=== PATIENT | male | born 1990 | race Two or more races ===

== ENCOUNTER 2017-07-29 19:12 | Emergency (ER) | payer MEDICAID ==
[~2017-07-29] VITALS: Ht 177.8 cm; Wt 103.0 kg
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
--- NOTE | 2017-07-29 19:36 | NUR ---
XRAY AT THE BEDSIDE.
[2017-07-29 19:56] LABS: BASOPHILS # (AUTO) 0.2 /CMM (0.0-0.2); BASOPHILS % (AUTO) 2.6 % (0.0-2.0); EOSINOPHILS # (AUTO) 0.1 /CMM (0.0-0.7); EOSINOPHILS % (AUTO) 1.5 % (0.0-6.0); HEMATOCRIT 48 % (39-51); LYMPHOCYTES # (AUTO) 2.4 /CMM (0.8-4.8); LYMPHOCYTES % (AUTO) 27.3 % (20.0-44.0); MEAN CORPUSCULAR HEMOGLOBIN 28 PG (26.0-33.0); MEAN CORPUSCULAR HGB CONC 34 g/dl (31.0-36.0); MEAN CORPUSCULAR VOLUME 84 fL (80-96); MONOCYTES # (AUTO) 0.6 /CMM (0.1-1.30); MONOCYTES % (AUTO) 7.3 % (2.0-12.0); NEUTROPHILS # (AUTO) 5.4 /CMM (1.8-8.9); NEUTROPHILS % (AUTO) 61.3 % (43.0-81.0); PLATELET COUNT (AUTO) 319 /CMM (150-450); RED BLOOD CELL COUNT(AUTO) 5.67 MIL/uL (4.5-6.0); WHITE BLOOD COUNT (AUTO) 8.7 K/uL (4.3-11.0)
--- NOTE | 2017-07-29 19:58 | NUR ---
PT GONE TO CT.
--- NOTE | 2017-07-29 20:15 | NUR ---
PT RETURNED FROM CT.
--- NOTE | 2017-07-29 20:20 | NUR ---
PT KNOWS HE IS IN THE HOSPITAL.
--- NOTE | 2017-07-29 20:25 | NUR ---
PT IS REFUSING URINE SAMPLE AT THIS TIME.
--- NOTE | 2017-07-29 20:26 | NUR ---
PT APPEARS TO BE MORE ALERT. PT IN THE PROCESS OF GIVING A URINE SAMPLE.
[2017-07-29 20:40] LABS: INR 0.88 (0.87-1.13); PROTHROMBIN TIME 9.1 SECS (9.5-12.7)
[2017-07-29 20:44] LABS: CALCIUM, SERUM 9.4 mg/dL (8.5-10.1); CARBON DIOXIDE 30 mmol/L (21-32); CHLORIDE 101 mmol/L (98-107); GLUCOSE 99 mg/dL (74-106); POTASSIUM 4.1 mmol/L (3.5-5.1); SODIUM SERUM 136 mmol/L (136-145); UREA NITROGEN, BLOOD 12 mg/dL (7-18)
[2017-07-29 20:49] LABS: SERUM AMMONIA 6 umol/L (11-32)
--- NOTE | 2017-07-29 20:53 | NUR ---
PT IS SITTING UP IN BED EATING CHEETOS. URINE SAMPLE OBTAINED. PT WANTS TO GO SMOKE. PT STATED THAT HE DIDN'T ANSWER OUR INITIAL QUESTIONS ABOUT WHO HE WAS AND WHERE HE WAS BECAUSE HE WASN'T FEELING WELL.
[2017-07-29 21:07] LABS: ALANINE AMINOTRANSFERASE 66 U/L (12-78); ALCOHOL, BLOOD < 3 mg/dL (0-0); ALKALINE PHOSPHATASE 89 U/L (46-116); ASPARTATE AMINOTRANSFERASE 39 U/L (15-37); BILIRUBIN,DIRECT 0.1 mg/dL (0.0-0.2); BILIRUBIN,TOTAL 0.5 mg/dL (0.2-1.0); THYROID STIMULATING HORMONE 1.602 uIU/mL (0.358-3.74); TOTAL PROTEIN, SERUM 7.7 g/dL (6.4-8.2)
[2017-07-29 21:09] LABS: ACETAMINOPHEN 0 ug/ml (10-30)
--- NOTE | 2017-07-29 21:18 | NUR ---
PT AMBULATED TO THE BATHROOM WITH A STEADY GAIT.
[2017-07-29 21:21] LABS: APPEARANCE,URINE Clear (CLEAR); BILIRUBIN,URINE Negative (NEGATIVE); BLOOD, URINE Negative Ery/uL (NEGATIVE); COLOR,URINE Yellow (YELLOW); KETONES,URINE Negative (NEGATIVE); LEUKOCYTE ESTERASE ,URINE Negative (NEGATIVE); NITRITE, URINE Negative (NEGATIVE); PH,URINE 8.5 (5.0-8.0); PROTEIN,URINE Negative (NEGATIVE); UGLUCOSE Negative (NEGATIVE); UROBILINOGEN,URINE 0.2 EU/dL (0.2)
--- NOTE | 2017-07-29 21:46 | NUR ---
IV removed. Catheter intact and site benign. Pressure and 4x4 applied to site. No bleeding noted.
--- NOTE | 2017-07-29 21:48 | NUR ---
PT AMBULATED TO THE BATHROOM WITH A STEADY GAIT.
[2017-07-29 21:49] VITALS: BP 123/63
--- NOTE | 2017-07-29 21:49 | NUR ---
Patient discharged to home in stable condition. Written and verbal after care instructions given. Patient verbalizes understanding of instruction AND RX. PT'S VSS.
== END 2017-07-29 21:51 | disposition home or self-care (01) ==
LOC: ER 19:17
DX: F11.10 Opioid abuse, uncomplicated (principal); F15.10 Other stimulant abuse, uncomplicated; F12.10 Cannabis abuse, uncomplicated; F19.10 Other psychoactive substance abuse, uncomplicated; F17.210 Nicotine dependence, cigarettes, uncomplicated; F90.9 Attention-deficit hyperactivity disorder, unspecified type; R79.89 Other specified abnormal findings of blood chemistry; R79.1 Abnormal coagulation profile; F10.10 Alcohol abuse, uncomplicated
CPT/HCPCS: 36415; 70450; 71010; 72125; 74176; 80048; 80076; 80305; 80329; 81001; 82140; 82962; 84443; 85025; 85730; 93005; 99285; A4606; G0480 ×2; Z7610; 81000-TC; 87081-TC

== ENCOUNTER 2019-02-15 23:00 | Emergency (ER) | payer SELFPAY ==
[~2019-02-15] VITALS: Ht 180.3 cm; Wt 99.8 kg
[2019-02-15 23:19] VITALS: BP 139/76
[2019-02-16] MEDS ORDERED: LIDOCAINE /MPF 1% VIAL 5 ML VIAL ONE (00:24)
[2019-02-16] MEDS ORDERED: LIDOCAINE 1%-EPI 1:100,000 20 ML VIAL ONE (00:28)
[2019-02-16] MEDS ORDERED: SULFAMETH/TRIMETH 800/160 MG 1 UDTAB TABLET PO ONE ×2 (00:30→00:45)
[2019-02-16] MEDS ORDERED: LIDOCAINE 1%-EPI 1:100,000 50 ML VIAL IJ ONE (00:30)
--- NOTE | 2019-02-16 00:30 | NUR ---
DR. GOODEN AT BEDSIDE FOR I&D
== END 2019-02-16 00:51 | disposition home or self-care (01) ==
LOC: ER 23:03
DX: L02.01 Cutaneous abscess of face (principal); F90.9 Attention-deficit hyperactivity disorder, unspecified type; F17.200 Nicotine dependence, unspecified, uncomplicated
CPT/HCPCS: 10060; 99283; A6402 ×2; J3490 ×3

== ENCOUNTER 2022-12-31 10:09 | Emergency (ER) | payer SELFPAY ==
[~2022-12-31] VITALS: Ht 180.3 cm; Wt 108.9 kg
[2022-12-31 10:16] VITALS: BP 138/70
[2022-12-31] MEDS ORDERED: AMOX-427 PO (10:22)
[2022-12-31] MEDS ORDERED: IBUPROFEN 600 MG TABLET ONE (10:28)
[2022-12-31] MEDS ORDERED: IBUPROFEN 600 MG TABLET PO ONE (10:30)
== END 2022-12-31 10:33 | disposition home or self-care (01) ==
LOC: ER 10:13
DX: M27.2 Inflammatory conditions of jaws (principal); F17.200 Nicotine dependence, unspecified, uncomplicated

== ENCOUNTER 2023-10-18 09:10 | Emergency (ER) | payer MEDICAID, OTHER ==
[~2023-10-18] VITALS: Ht 180.3 cm; Wt 90.7 kg
[~2023-10-18 09:10] MED LIST: AMOX-427 PO
[2023-10-18 09:53] LABS: BASOPHILS % (AUTO) 0.3 % (0.0-2.0); EOSINOPHILS # (AUTO) 0.1 K/uL (0.0-0.7); EOSINOPHILS % (AUTO) 0.9 % (0.0-6.0); HEMATOCRIT 33 % (39-51); HEMOGLOBIN 11.3 g/dL (13.5-17.5); LYMPHOCYTES # (AUTO) 2.6 K/uL (0.8-4.8); LYMPHOCYTES % (AUTO) 25.9 % (20.0-44.0); MEAN CORPUSCULAR HEMOGLOBIN 29 PG (26.0-33.0); MEAN CORPUSCULAR HGB CONC 35 g/dl (31.0-36.0); MEAN CORPUSCULAR VOLUME 85 fL (80-96); MONOCYTES # (AUTO) 0.9 K/uL (0.1-1.30); MONOCYTES % (AUTO) 8.6 % (2.0-12.0); NEUTROPHILS # (AUTO) 6.5 K/uL (1.8-8.9); NEUTROPHILS % (AUTO) 64.3 % (43.0-81.0); PLATELET COUNT (AUTO) 338 K/uL (150-450); RED BLOOD CELL COUNT(AUTO) 3.85 MIL/uL (4.5-6.0)
[2023-10-18 10:06] LABS: ALBUMIN 3.1 g/dL (3.4-5.0); BILIRUBIN,DIRECT 0.2 mg/dL (0.0-0.2); BILIRUBIN,TOTAL 0.6 mg/dL (0.2-1.0); CALCIUM, SERUM 8.4 mg/dL (8.5-10.1); POTASSIUM 3.8 mmol/L (3.5-5.1); TOTAL PROTEIN, SERUM 6.4 g/dL (6.4-8.2)
[2023-10-18 10:23] LABS: INR 1.01 (0.91-1.10); PARTIAL THROMBOPLASTIN TIME 24.2 SEC (24.3-34.3); PROTHROMBIN TIME 10.7 SECS (9.2-11.1)
[2023-10-18 11:20] VITALS: BP 118/68; TEMP 97.9; O2SAT 100
== END 2023-10-18 11:21 | disposition home or self-care (01) ==
LOC: ER 09:10
DX: R10.13 Epigastric pain (principal); K62.5 Hemorrhage of anus and rectum
CPT/HCPCS: 36415; 80048-TC; 80076-TC; 83690-TC; 85025-TC; 85730-TC